=== PATIENT | male | born 2000 | race Two or more races ===

== ENCOUNTER 2024-04-08 13:27 | Emergency (ER) | payer OTHER ==
[2024-04-08 13:51] VITALS: BP 118/72; PULSE 74
== END 2024-04-08 14:21 | disposition home or self-care (01) ==
LOC: KA.ED 13:27
DX: S90.31XA Contusion of right foot, initial encounter (principal); W20.8XXA Other cause of strike by thrown, projected or falling object, initial encounter
CPT/HCPCS: 73630-RT; 99283